=== PATIENT | female | born 1960 | race Caucasian/White ===

== ENCOUNTER → 2022-12-07 13:33 | Outpatient (CLI) | payer BC, SELFPAY ==
--- NOTE | ~2022-12-07 | MR_ITS ---
EXAMINATION: MR knee RT wo con DATE: 12/07/2022 14:05 INDICATION: Chronic right knee pain TECHNIQUE: Magnetic resonance imaging (MRI) of the right knee was performed without intravenous contr ast. Sequences included coronal PD-weighted FSE, coronal PD-weighted FS FSE, sagittal T2-weighted FS E, sagittal PD-weighted FS FSE and axial PD weighted fat saturated FSE. COMPARISON: None. FINDINGS: Medial compartment: The posterior horn of the medial meniscus is abnormally small, approximately half the cross-sectional area of the anterior horn. There is no provided history of nor scarring at Hoffa's fat pad to sugges t arthroscopy port and prior partial meniscectomy suggesting this reflects sequela of meniscal tear w ith posterior displacement of meniscal tissue. There is relative enlargement of the meniscus at the l evel of the body and posterior horn with caudal subluxation of meniscal tissue along the posterior me dial rim of the medial tibial plateau. This likely represents a meniscal flap arising from the small posterior horn and folded back upon the more lateral posterior horn and posterior body of the meniscu s. Articular cartilage is normal. Lateral compartment: Lateral meniscus is normal. AP oriented linear band of heterogeneous cartilage signal along the centr al aspect lateral tibial plateau suggesting a partial-thickness chondral fissure. Remaining articular cartilage is normal. Patellofemoral compartment: Deep chondral ulceration with underlying edema-like and cystlike changes at the lateral patellar face t, patellar apical ridge and more extensively at the mid to inferior medial facet. Additional deep ch ondral ulceration with underlying cortical irregularity and mild edema-like signal change at the cent ral to inferior aspect of the medial trochlea. Less severe partial thickness chondral ulceration with out degenerative subchondral changes at the lateral trochlea and trochlear groove. Ligaments and tendons: Anterior and posterior cruciate ligaments are normal. The medial collateral ligament and fibular maco ateral ligament complex are normal. The extensor mechanism is normal. The visualized medial and later al hamstring tendons as well as the iliotibial band are normal. Fluid: Physiologic amount of fluid in the joint space. No loose osteochondral bodies identified. Osseous/other: Bone alignment is normal. No fracture or pathologic marrow replacing process. IMPRESSION: 1. Small posterior horn of the medial meniscus without evidence of prior partial meniscectomy, suspic ious for meniscal tear and displacement of a meniscal flap which is likely positioned along the more medial posterior horn and posterior body as detailed above. 2. Patellofemoral osteoarthritis with extensive high-grade patellar and medial trochlear chondromalac ia. 3. Partial-thickness chondral fissure along the lateral tibial plateau. Reviewed, dictated and finalized at location L. IMPRESSION: 1. Small posterior horn of the medial meniscus without evidence of prior partia l meniscectomy, suspicious for meniscal tear and displacement of a meniscal fla p which is likely positioned along the more medial posterior horn and posterior body as detailed above. 2. Patellofemoral osteoarthritis with extensive high-grade patellar and medial trochlear chondromalacia. 3. Partial-thickness chondral fissure along the lateral tibial plateau.
== END ==
PROVIDERS: PCP Orthopaedic Surgery; Visit Provider Orthopaedic Surgery
DX: M25.561 Pain in right knee (principal); G89.29 Other chronic pain; M17.11 Unilateral primary osteoarthritis, right knee; M94.261 Chondromalacia, right knee
CPT/HCPCS: 73721